=== PATIENT | female | born 1965 | race Caucasian/White ===

== ENCOUNTER 2023-09-22 17:42 | Emergency (ER) | payer MEDICARE, MEDICAID, SELFPAY ==
[2023-09-22 17:44] VITALS: BP 164/101; PULSE 96; RESP 16; TEMP 36.4; O2SAT 96; BMI 34.3
--- NOTE | 2023-09-22 18:57 | CTR_ITS ---
PROCEDURE INFORMATION: Exam: CT Abdomen And Pelvis With Contrast Exam date and time: 09/22/2023 8:54 PM Age: 57 years old Clinical indication: Other: Blood in colostomy with abdominal pain; Patient HX: Patient is claustophobic and was moving all around prior to scan- we were able to got the scan with minimal movement TECHNIQUE: Imaging protocol: Computed tomography of the abdomen and pelvis with contrast. Radiation optimization: All CT scans at this facility use at least one of these dose optimization techniques: automated exposure control; mA and/or kV adjustment per patient size (includes targeted exams where dose is matched to clinical indication); or iterative reconstruction. Contrast material: OMNI 350; Contrast volume: 100 ml; Contrast route: INTRAVENOUS (IV); COMPARISON: No relevant prior studies available. RADIATION DOSE METRICS: Total DLP (mGy-cm): 1369.77 FINDINGS: Liver: Normal. No mass. Gallbladder and bile ducts: Normal. No calcified stones. No ductal dilation. Pancreas: Normal. No ductal dilation. Spleen: Normal. No splenomegaly. Adrenal glands: Normal. No mass. Kidneys and ureters: Right kidney cyst, negative for follow-up advised. Stomach and bowel: Unremarkable. No obstruction. No mucosal thickening. Appendix: No evidence of appendicitis. Intraperitoneal space: Unremarkable. No free air. No significant fluid collection. Vasculature: Unremarkable. No abdominal aortic aneurysm. Lymph nodes: Unremarkable. No enlarged lymph nodes. Urinary bladder: Unremarkable as visualized. Reproductive: Unremarkable as visualized. Bones/joints: Unremarkable. No acute fracture. Soft tissues: Right lower abdominal ostomy left a large peristomal hernia containing bowel and omentum without dilation or inflammation. CT/CT abdomen pelvis w con* [id number] IMPRESSION: 1. Negative for acute inflammatory process in the abdomen or pelvis. 2. Right kidney cyst, negative for follow-up advised. 3. Right lower abdominal ostomy left a large peristomal hernia containing bowel and omentum without dilation or inflammation.
[2023-09-22 19:21] VITALS: BP 167/109; PULSE 92; O2SAT 93
[2023-09-22 19:29] LABS: Basophils % 0.5 %; Eosinophils # 0.1 10^3/uL (0.0-0.8); Eosinophils % 1.7 %; Hematocrit 45.6 % (36-47); Lymphocytes # 0.9 10^3/uL (0.8-4.8); Lymphocytes % 14.2 %; Mean Corpuscular HGB Conc 31.6 g/dL (30-55); Mean Corpuscular Hemoglobin 27.5 pg (27-33); Mean Corpuscular Volume 87.2 fl (85-98); Mean Platelet Volume 9.5 fL (7.4-10.4); Monocytes # 0.5 10^3/uL (0.2-0.9); Monocytes % 7.9 %; Neutrophils # 4.75 10^3/uL (1.8-7.7); Neutrophils % 75.1 %; Nucleated Red Blood Cells % 0 %; Platelet Count 198 10^3/cmm (157-399); Red Blood Count 5.23 10^6/uL (3.85-5.65); Red Cell Distribution Width 13.7 % (12.1-15.1); White Blood Count 6.33 10^3/uL (3.29-11.43)
[2023-09-22 19:45] LABS: Lactic Sepsis W/Reflex 1.1 mmol/L (0.5-2.2)
[2023-09-22 19:46] LABS: Alanine Aminotransferase 14 U/L (0-33); Albumin Level 3.8 g/dL (3.5-5.2); Alkaline Phosphatase 101 U/L (35-105); Anion Gap 13.3 (5-19); Aspartate Amino Transferase 15 U/L (0-32); Blood Urea Nitrogen 24 mg/dL (6-20); Calcium 9.2 mg/dL (8.5-10.5); Carbon Dioxide 27 mmol/L (22-29); Chloride 102 mmol/L (98-107); Creatinine Clr Calc Pharmacy 67.7155; Globulin 2.9 g/dL (1.3-4.6); Glomerular Filtration Rate 57.1 mL/min (90-130); Glucose 102 mg/dL (65-115); Osmolality Calculated 290 mOsm/kg (285-295); Potassium 4.3 mmol/L (3.5-5.1); Sodium 138 mmol/L (136-145); Total Bilirubin 0.3 mg/dL (0.15-1.2); Total Protein 6.7 g/dL (6.6-8.7)
--- NOTE | 2023-09-22 19:50 | ED_ITS ---
HPI - GI Bleed 2 General: Chief complaint: GI Bleed Stated complaint: gi bleed Time Seen by Provider: 09/22/23 18:06 History of Present Illness: 57-year-old female presents to the emerg ency department chief complaint of having bloody stools out of her ostomy that started earlier today patient has a previous history of bowel issues she does not endorse any blood in her stools up to now patient reports generalized abdominal discomfort does not report a recent fevers or chills or any other associated symptoms. Associated symptoms: Reports abdominal pain and nausea; Denies chills, fever(s), headache(s), malaise, rash or vomiting Review of Systems 2 General: Reports: 10 or more systems reviewed and unremarkable except in HPI and below Const: Denies: fever(s), chills, fatigue or malaise Eyes: Denies: change in vision or blurry vision Card: Denies: chest pain or palpitations Resp: Denies: dyspnea or productive cough GI: Reports: abdominal pain, nausea, change in stool character, hematochezia and mucus in stool; Denies: vomiting : Denies: flank pain Musc: Denies: extremity pain or extremity swelling Skin/Breast: Denies: rash or pruritus Neuro: Denies: headache(s) Psych: Denies: anxiety or depression Kofi/Lymph: Denies: easy bleeding All/Imm: Denies: urticaria, throat swelling or facial swelling Physical Exam 2 Const: COMMON NORMALS: no acute distress, patient oriented x3 and healthy appearing HENMT: COMMON NORMALS: normocephalic and atraumatic HEAD & SCALP: n ormocephalic and atraumatic Eye: COMMON NORMALS: Equal, round and reactive pupils present and EOMs intact bilaterally PUPIL: Yes Equal, round and reactive pupils present Neck/C-Spine: COMMON NORMALS: full ROM, supple and no JVD Lymph: LYMPHATIC: no lymphadenopathy noted Chest: COMMONS NORMALS: normal inspection of the chest and normal palpation of entire chest wall Resp: COMMON NORMALS: normal respiratory effort, No retractions and clear to auscultation bilaterally EFFORT & INSPECTION: Yes able to speak in complete sentences and Yes symmetric chest movement AUSCULTATION: clear to auscultation bilaterally Cardio: COMMON NORMALS: no JVD, regular rate and regular rhythm RATE: r egular rate RHYTHM: regular rhythm GI: OTHER: Bloody stools noted in the ostomy bag generalized abdominal tenderness noted with mild rebound and guarding appreciated : COMMON NORMALS: Yes no CVA tenderness BLADDER/KIDNEY EXAM: Yes no CVA tenderness Back/Pelvis: COMMON NORMALS: no CVA tenderness Extremity: COMMON NORMALS: normal to inspection and full ROM Neuro: COMMON NORMALS: patient oriented x3, CN's II-XII intact bilaterally, moves all extremities and no focal motor deficits Psych: COMMON NORMALS: mental status grossly normal, Normal thought process present, cooperative and normal affect THOUGHT PROCESS: Normal thought process present Skin: COMMON NORMALS: no rashes or lesions noted GENERAL SKIN EXAM: no rashes or lesions noted Course 2 Vital Signs: Vital signs: Vital Signs Temperature 97.6 F 09/22/23 17:44 Pulse Rate 88 09/22/23 21:30 Respiratory Rate 16 09/22/23 17:44 Blood Pressure 157/96 09/22/23 21:30 Pulse Oximetry 91 09/22/23 21:30 Oxygen Delivery Me thod Room Air 09/22/23 21:30 MDM - GI Bleed Medical Decision Making Due to patient's significant additional IVs established IV fluids provided for hydration lab work and CT imaging will be obtained we will continue to follow. Patient was not found to be anemic repeated the hemoglobin revealed a stable condition patient did have a bit of bloody stools however did dark it up with time CT imaging came back unremarkable as well as her electrolytes patient appears to may be some colitis we will be treating her with some antibiotics and some medications for her symptoms did advise further follow-up primary care in 2 to 3 days in which he was advised to return the interim if any of her symptoms persist or worse. Lab Data 09/22/23 21:55 09/22/23 19:17 Radiology Impressions Abdomen/Pelvis CT 09/22/23 18:57 IMPRESSION: 1. Negative for acute inflammatory process in the abdomen or pelvis. 2. Right kidney cyst, negative for follow-up advised. 3. Right lower abdominal ostomy left a large peristomal hernia containing bowel and omentum without dilation or inflammation. Laboratory Results WBC 6.04 10^3/uL (3.29-11.43) 09/22/23 21:55 RBC 4.76 10^6/uL (3.85-5.65) 09/22/23 21:55 Hgb 13.10 g/dL (11.27-16.99) 09/22/23 21:55 Hct 41.6 % (36-47) 09/22/23 21:55 MCV 87.4 fl (85-98) 09/22/23 21:55 MCH 27.5 pg (27-33) 09/22/23 21:55 MCHC 31.5 g/dL (30-55) 09/22/23 21:55 RDW 13.9 % (12.1-15.1) 09/22/23 21:55 Plt Count 167 10^3/cmm (157-399) 09/22/23 21:55 MPV 9.4 fL (7.4-10.4) 09/22/23 21:55 Neut % (Auto) 77.5 % 09/22/23 21: Lymph % (Auto) 11.6 % 09/22/23 21: [place] % (Auto) 7.9 % 09/22/23 21: Eos % (Auto) 2.0 % 09/22/23 21:55 Baso % (Auto) 0.5 % 09/22/23 21:55 Neut # (Auto) 4.68 10^3/uL (1.8-7.7) 09/22/23 21:55 Lymph # (Auto) 0.7 10^3/uL (0.8-4.8) L 09/22/23 21:55 [place] # (Auto) 0.5 10^3/uL (0.2-0.9) 09/22/23 21:55 Eos # (Auto) 0.1 10^3/uL (0.0-0.8) 09/22/23 21:55 Baso # (Auto) 0.0 10^3/uL (0.0-0.1) 09/22/23 21:55 Nucleated RBC % (auto) 0 % 09/22/23 21: Nucleated RBCs # 0.0 /100WBC 09/22/23 21:55 Sodium 138 mmol/L (136-145) 09/22/23 19:17 Potassium 4.3 mmol/L (3.5-5.1) 09/22/23 19:17 Chloride 102 mmol/L (98-107) 09/22/23 19:17 Carbon Dioxide 27 mmol/L (22-29) 09/22/23 19:17 Anion Gap 13.3 (5-19) 09/22/23 19:17 BUN 24 mg/dL (6-20) H 09/22/23 19:17 Creatinine 1.0 mg/dL (0.5-0.9) H 09/22/23 19:17 GFR Calculation 57.1 mL/min (90-130) L 09/22/23 19:17 Glucose 102 mg/dL (65-115) 09/22/23 19:17 Calculated Osmolality 290 mOsm/kg (285-295) 09/22/23 19:17 Lactic Acid 1.1 mmol/L (0.5-2.2) 09/22/23 19:17 Calcium 9.2 mg/dL (8.5-10.5) 09/22/23 19:17 Total Bilirubin 0.3 mg/dL (0.15-1.2) 09/22/23 19:17 AST 15 U/L (0-32) 09/22/23 19:17 ALT 14 U/L (0-33) 09/22/23 19:17 Alkaline Phosphatase 101 U/L (35-105) 09/22/23 19:17 C-Reactive Protein 3.0 mg/L (0.0-4.9) 09/22/23 19:17 Total Protein 6.7 g/dL (6.6-8.7) 09/22/23 19:17 Albumin 3.8 g/dL (3.5-5.2) 09/22/23 19:17 Globulin 2.9 g/dL (1.3-4.6) 09/22/23 19:17 Urine Color Yellow (Yellow) 09/22/23 19:59 Urine Appearance Clear (CLEAR) 09/22/23 19:59 Urine pH 5 (5-7) 09/22/23 19:59 Ur Specific [place] 1.020 (1.005-1.030) 09/22/23 19:59 Urine Protein Neg (Negative) 09/22/23 19:59 Urine Glucose (UA) Norm (Normal) 09/22/23 19:59 Urine Ketones Negative (Negative) 09/22/23 19:59 Urine Blood Neg (Negative) 03/01/24 19:59 Urine Nitrate Negative (Negative) 09/22/23 19:59 Urine Bilirubin Neg (Negative) 09/22/23 19:59 Urine Urobilinogen Norm mg/dL (Negative) 09/22/23 19:59 Ur Leukocyte Esterase Negative (Negative) 09/22/23 19:59 All radiology interpretation(s) finalized by discharge Discharge Plan Discharge Patient Disposition: Home Clinical Impression: Enteritis, Bloody feces Condition: Stable Prescriptions: New ondansetron HCl 4 mg tablet 4 mg PO DAILY PRN (Reason: nausea and vomiting) 4 Days Qty: 20 0RF metronidazole 500 mg tablet 500 mg PO BID 7 Days Qty: 14 0RF Discharge Orders: Discharge ED (Routine); Ordered 09/22/23 Ordered By: Ángel Gonzalez Discharge Diet: Advance as tolerated Discharge Activity: Resume usual activity Patient Instructions: Enteritis (ED), Melena (ED) Activity Restrictions/Additional Instructions: Please further follow-up with your primary care doctor in 2 to 3 days, please take medications as prescribed in which please return the interim if any of your symptoms persist or worse Coding Level of Care Code ED [employer] for Letty Hilario
[2023-09-22] MEDS: pantoprazole 40 mg SDV 80 MG IVP (20:05)
[2023-09-22] MEDS: sodium chloride 0.9% 500 ML IV (20:06)
[2023-09-22 20:21] VITALS: BP 160/108; PULSE 65; O2SAT 93
[2023-09-22] MEDS: LORazepam 2 mg/mL INJ 10 mL MDV 1 MG IVP (20:27)
[2023-09-22 20:38] LABS: Add Urine Microscopic? NO; Charge for UA Resulting for Rev
[2023-09-22 20:43] LABS: Bilirubin Urine Neg (Negative); Blood Urine Neg (Negative); Glucose Urine UA Norm (Normal); Ketones Urine Negative (Negative); Leukocyte Esterase Urine Negative (Negative); Nitrate Urine Negative (Negative); Protein Urine Neg (Negative); Urine Appearance Clear (CLEAR); Urine Color Yellow (Yellow); Urobilinogen Urine Norm (Negative); pH Urine 5 (5-7)
[2023-09-22] MEDS: iohexol 350 mg/mL 500 mL Btl (per mL) IV (21:05)
[2023-09-22 21:30] VITALS: BP 157/96; PULSE 88; O2SAT 91
[2023-09-22 22:02] LABS: Basophils % 0.5 %; Eosinophils # 0.1 10^3/uL (0.0-0.8); Hematocrit 41.6 % (36-47); Lymphocytes # 0.7 10^3/uL (0.8-4.8); Lymphocytes % 11.6 %; Mean Corpuscular HGB Conc 31.5 g/dL (30-55); Mean Corpuscular Hemoglobin 27.5 pg (27-33); Mean Corpuscular Volume 87.4 fl (85-98); Mean Platelet Volume 9.4 fL (7.4-10.4); Monocytes # 0.5 10^3/uL (0.2-0.9); Monocytes % 7.9 %; Neutrophils # 4.68 10^3/uL (1.8-7.7); Neutrophils % 77.5 %; Nucleated Red Blood Cells % 0 %; Platelet Count 167 10^3/cmm (157-399); Red Blood Count 4.76 10^6/uL (3.85-5.65); Red Cell Distribution Width 13.9 % (12.1-15.1); White Blood Count 6.04 10^3/uL (3.29-11.43)
--- NOTE | 2023-09-22 22:44 | ED_ITS ---
HPI - GI Bleed 2 General: Chief complaint: GI Bleed Stated complaint: gi bleed Time Seen by Provider: 09/22/23 18:06 History of Present Illness: This is a duplicate chart please delete Course 2 Vital Signs: Vital signs: Vital Signs Temperature 97.6 F 09/22/23 17:44 Pulse Rate 88 09/22/23 21:30 Respiratory Rate 16 09/22/23 17:44 Blood Pressure 157/96 09/22/23 21:30 Pulse Oximetry 91 09/22/23 21:30 Oxygen Delivery Me thod Room Air 09/22/23 21:30 MDM - GI Bleed Medical Decision Making This is a duplicate chart please delete Lab Data 09/22/23 21:55 09/22/23 19:17 Radiology Impressions Abdomen/Pelvis CT 09/22/23 18:57 IMPRESSION: 1. Negative for acute inflammatory process in the abdomen or pelvis. 2. Right kidney cyst, negative for follow-up advised. 3. Right lower abdominal ostomy left a large peristomal hernia containing bowel and omentum without dilation or inflammation. Laboratory Results WBC 6.04 10^3/uL (3.29-11.43) 09/22/23 21:55 RBC 4.76 10^6/uL (3.85-5.65) 09/22/23 21:55 Hgb 13.10 g/dL (11.27-16.99) 09/22/23 21:55 Hct 41.6 % (36-47) 09/22/23 21:55 MCV 87.4 fl (85-98) 09/22/23 21:55 MCH 27.5 pg (27-33) 09/22/23 21:55 MCHC 31.5 g/dL (30-55) 09/22/23 21:55 RDW 13.9 % (12.1-15.1) 09/22/23 21:55 Plt Count 167 10^3/cmm (157-399) 09/22/23 21:55 MPV 9.4 fL (7.4-10.4) 09/22/23 21:55 Neut % (Auto) 77.5 % 09/22/23 21:55 Lymph % (Auto) 11.6 % 09/22/23 21:55 [place] % (Auto) 7.9 % 09/22/23 21:55 Eos % (Auto) 2.0 % 09/22/23 21:55 Baso % (Auto) 0.5 % 09/22/23 21:55 Neut # (Auto) 4.68 10^3/uL (1.8-7.7) 09/22/23 21:55 Lymph # (Auto) 0.7 10^3/uL (0.8-4.8) L 09/22/23 21:55 [place] # (Auto) 0.5 10^3/uL (0.2-0.9) 09/22/23 21:55 Eos # (Auto) 0.1 10^3/uL (0.0-0.8) 09/22/23 21:55 Baso # (Auto) 0.0 10^3/uL (0.0-0.1) 09/22/23 21:55 Nucleated RBC % (auto) 0 % 09/22/23 21:55 Nucleated RBCs # 0.0 /100WBC 09/22/23 21:55 Sodium 138 mmol/L (136-145) 09/22/23 19:17 Potassium 4.3 mmol/L (3.5-5.1) 09/22/23 19:17 Chloride 102 mmol/L (98-107) 09/22/23 19:17 Carbon Dioxide 27 mmol/L (22-29) 09/22/23 19:17 Anion Gap 13.3 (5-19) 09/22/23 19:17 BUN 24 mg/dL (6-20) H 09/22/23 19:17 Creatinine 1.0 mg/dL (0.5-0.9) H 09/22/23 19:17 GFR Calculation 57.1 mL/min (90-130) L 09/22/23 19:17 Glucose 102 mg/dL (65-115) 09/22/23 19:17 Calculated Osmolality 290 mOsm/kg (285-295) 09/22/23 19:17 Lactic Acid 1.1 mmol/L (0.5-2.2) 09/22/23 19:17 Calcium 9.2 mg/dL (8.5-10.5) 09/22/23 19:17 Total Bilirubin 0.3 mg/dL (0.15-1.2) 09/22/23 19:17 AST 15 U/L (0-32) 09/22/23 19:17 ALT 14 U/L (0-33) 09/22/23 19:17 Alkaline Phosphatase 101 U/L (35-105) 09/22/23 19:17 C-Reactive Protein 3.0 mg/L (0.0-4.9) 09/22/23 19:17 Total Protein 6.7 g/dL (6.6-8.7) 09/22/23 19:17 Albumin 3.8 g/dL (3.5-5.2) 09/22/23 19:17 Globulin 2.9 g/dL (1.3-4.6) 09/22/23 19:17 Urine Color Yellow (Yellow) 09/22/23 19:59 Urine Appearance Clear (CLEAR) 09/22/23 19:59 Urine pH 5 (5-7) 09/22/23 19:59 Ur Specific [place] 1.020 (1.005-1.030) 09/22/23 19:59 Urine Protein Neg (Negative) 09/22/23 19:59 Urine Glucose (UA) Norm (Normal) 09/22/23 19:59 Urine Ketones Negative (Negative) 09/22/23 19:59 Urine Blood Neg (Negative) 09/22/23 19:59 Urine Nitrate Negative (Negative) 09/22/23 19:59 Urine Bilirubin Neg (Negative) 09/22/23 19:59 Urine Urobilinogen Norm mg/dL (Negative) 09/22/23 19:59 Ur Leukocyte Esterase Negative (Negative) 09/22/23 19:59 All radiology interpretation(s) finalized by discharge Discharge Plan Discharge Patient Disposition: Home Clinical Impression: Enteritis, Bloody feces Condition: Stable Prescriptions: New ondansetron HCl 4 mg tablet 4 mg PO DAILY PRN (Reason: nausea and vomiting) 4 Days Qty: 20 0RF metronidazole 500 mg tablet 500 mg PO BID 7 Days Qty: 14 0RF Discharge Orders: Discharge ED (Routine); Ordered 09/22/23 Ordered By: Ángel Gonzalez Discharge Diet: Advance as tolerated Discharge Activity: Resume usual activity Patient Instructions: Enteritis (ED), Melena (ED) Activity Restrictions/Additional Instructions: Please further follow-up with your primary care doctor in 2 to 3 days, please take medications as prescribed in which please return the interim if any of your symptoms persist or worse Coding Level of Care Code ED [employer] for Letty Hilario
[2023-09-22 23:35] VITALS: RESP 17
--- NOTE | 2023-09-23 12:41 | PC.NURSE ---
Called patients prescriptions into [facility] pharmacy in [place]. They stated they would get them delivered to the patient today.
== END 2023-09-22 23:36 | disposition home or self-care (01) ==
PROVIDERS: Emergency Provider Emergency Medicine
DX: K52.9 Noninfective gastroenteritis and colitis, unspecified (principal); K92.1 Melena
CPT/HCPCS: 36415; 74177; 80053; 81003; 83605; 85025; 86140; 96374; 96375; 99285; C9113; J2060; J7040; Q9967